=== PATIENT | female | born 1945 | race Caucasian/White ===

== ENCOUNTER 2023-06-14 21:43 | Inpatient (IN) | payer MEDICARE, OTHER ==
[~2023-06-14] VITALS: Ht 154.9 cm; Wt 79.4 kg
[2023-06-14 22:52] LABS: BASOPHILS # (AUTO) 0.1 K/uL (0.0-0.2); BASOPHILS % (AUTO) 0.8 % (0.0-2.0); EOSINOPHILS # (AUTO) 0.2 K/uL (0.0-0.7); EOSINOPHILS % (AUTO) 2.9 % (0.0-6.0); HEMATOCRIT 37 % (33-45); HEMOGLOBIN 12.3 g/dL (11.5-14.8); LYMPHOCYTES % (AUTO) 24.8 % (20.0-44.0); MEAN CORPUSCULAR HEMOGLOBIN 31 PG (26.0-33.0); MEAN CORPUSCULAR HGB CONC 33 g/dl (31.0-36.0); MEAN CORPUSCULAR VOLUME 94 fL (82-100); MONOCYTES # (AUTO) 0.7 K/uL (0.1-1.30); MONOCYTES % (AUTO) 8.6 % (2.0-12.0); NEUTROPHILS % (AUTO) 62.9 % (43.0-81.0); PLATELET COUNT (AUTO) 246 K/uL (150-450); RED BLOOD CELL COUNT(AUTO) 3.98 MIL/uL (4.0-5.2); RED CELL DISTRIBUTION WIDTH 13.2 % (11.5-15.0); WHITE BLOOD COUNT (AUTO) 7.9 K/uL (4.3-11.0)
[2023-06-14 23:17] LABS: ALANINE AMINOTRANSFERASE 19 U/L (12-78); ALBUMIN 3.3 g/dL (3.4-5.0); ALKALINE PHOSPHATASE 99 U/L (46-116); ASPARTATE AMINOTRANSFERASE 16 U/L (15-37); BILIRUBIN,DIRECT 0.1 mg/dL (0.0-0.2); BILIRUBIN,TOTAL 0.2 mg/dL (0.2-1.0); CALCIUM, SERUM 8.8 mg/dL (8.5-10.1); CARBON DIOXIDE 24 mmol/L (21-32); CHLORIDE 106 mmol/L (98-107); CREATININE 1.3 mg/dL (0.6-1.3); GLUCOSE 100 mg/dL (74-106); POTASSIUM 4.4 mmol/L (3.5-5.1); SODIUM SERUM 139 mmol/L (136-145); TOTAL PROTEIN, SERUM 7.4 g/dL (6.4-8.2); UREA NITROGEN, BLOOD 28 mg/dL (7-18)
[2023-06-14 23:19] LABS: SALICYLATE 1.1 mg/dL (2.8-20.0)
[2023-06-14 23:21] LABS: ACETAMINOPHEN <10 ug/ml (10-30); ALCOHOL, BLOOD < 3 mg/dL (0-10)
[2023-06-14 23:57] LABS: APPEARANCE,URINE CLEAR (CLEAR); BILIRUBIN,URINE NEGATIVE (NEGATIVE); BLOOD, URINE TRACE-INTA Ery/uL (NEGATIVE); COLOR,URINE YELLOW (YELLOW); KETONES,URINE NEGATIVE (NEGATIVE); LEUKOCYTE ESTERASE ,URINE NEGATIVE (NEGATIVE); NITRITE, URINE NEGATIVE (NEGATIVE); PH,URINE 5.5 (5.0-8.0); PROTEIN,URINE NEGATIVE (NEGATIVE); UGLUCOSE NEGATIVE (NEGATIVE); UROBILINOGEN,URINE 0.2 EU/dL (0.2)
[2023-06-14 23:59] LABS: ADD URINE CULTURE NO; BACTERIA,URINE None seen /HPF (None Seen); SQUAMOUS EPITHELIAL CELL,UR Few /HPF (None Seen); WBC,URINE 0-2 /HPF (0-3)
[2023-06-15 00:09] LABS: AMPHETAMINE, URINE NEGATIVE (NEGATIVE); BARBITURATE, URINE NEGATIVE (NEGATIVE); BENZODIAZEPINE, URINE NEGATIVE (NEGATIVE); CANNABINOID, URINE NEGATIVE (NEGATIVE); COCCAINE, URINE NEGATIVE (NEGATIVE); OPIATE, URINE NEGATIVE (NEGATIVE); PHENCYCLIDINE SCREEN,URINE NEGATIVE (NEGATIVE)
[2023-06-15] MEDS ORDERED: NITR100C6 PO (02:16)
[2023-06-15] MEDS ORDERED: TRAZ-182 PO (02:16)
[2023-06-15] MEDS ORDERED: QUET25TA PO (02:16)
[2023-06-15] MEDS ORDERED: FLUO10TA PO (02:16)
[2023-06-15 03:43] VITALS: BP 117/69; TEMP 97.9; O2SAT 98
[2023-06-15] MEDS ORDERED: MAG HYDROX/AL HYDROX/SIMETH 30 ML UDC PO PRN (04:00)
[2023-06-15] MEDS ORDERED: ZOLPIDEM TARTRATE 5 MG TABLET PO PRN (04:00)
[2023-06-15] MEDS ORDERED: MAGNESIUM HYDROXIDE 30 ML UDC PO PRN (04:00)
[2023-06-15] MEDS ORDERED: ACETAMINOPHEN 325 MG TABLET PO PRN (04:00)
[2023-06-15] MEDS: BLOOD SUGAR DIAGNOSTIC 1 EACH STRIP IN ONE (04:31)
[2023-06-15 08:00] VITALS: BP 125/97; TEMP 97.6; O2SAT 96
[2023-06-15] MEDS: DIVALPROEX SODIUM 125 MG CAP.SPRINK PO SCH (11:43)
[2023-06-15 16:00] VITALS: BP 113/57; TEMP 98.4; O2SAT 97
[2023-06-15 20:00] VITALS: BP 131/71; TEMP 98.1; O2SAT 99
[2023-06-15] MEDS: QUETIAPINE FUMARATE 25 MG TABLET PO SCH (21:35)
[2023-06-16 08:00] VITALS: BP 99/70; TEMP 97.8; O2SAT 96
[2023-06-16 08:08] LABS: BILIRUBIN,TOTAL 0.5 mg/dL (0.2-1.0); POTASSIUM 4.3 mmol/L (3.5-5.1)
[2023-06-16 08:20] LABS: CHOLESTEROL 201 mg/dL (<200); HDL CHOLESTEROL 60 mg/dL (40-60); LDL 118 mg/dL (0-99); TRIGLYCERIDES 72 mg/dL (30-150)
[2023-06-16] MEDS: Z GUARD REMEDY 4 OZ OINT TP SCH (09:48)
[2023-06-16 16:00] VITALS: BP 116/73; TEMP 97.9; O2SAT 98
[2023-06-17 08:00] VITALS: BP 107/63; TEMP 98; O2SAT 97
[2023-06-17 16:00] VITALS: BP 119/96; TEMP 98.6; O2SAT 98
[2023-06-17 20:00] VITALS: BP 105/65; TEMP 98.1; O2SAT 95
[2023-06-18 08:00] VITALS: BP 93/68; TEMP 98.6; O2SAT 96
[2023-06-18] MEDS: LORAZEPAM 0.5 MG TABLET PO PRN (11:40)
[2023-06-18 16:00] VITALS: BP 111/66; TEMP 97.5; O2SAT 97
[2023-06-18 20:23] VITALS: BP 98/73; TEMP 98.6; O2SAT 100
[2023-06-19 08:00] VITALS: BP 100/58; TEMP 97.9; O2SAT 97
[2023-06-19 16:00] VITALS: BP 113/79; TEMP 97.9; O2SAT 97
[2023-06-19 20:34] VITALS: BP 117/82; TEMP 97.9; O2SAT 95
[2023-06-20 08:00] VITALS: BP 100/59; TEMP 98.7; O2SAT 97
[2023-06-20 16:00] VITALS: BP 119/59; TEMP 98.7; O2SAT 98
[2023-06-20 20:41] VITALS: BP 102/52; TEMP 97.9; O2SAT 96
[2023-06-21 08:00] VITALS: BP 105/57; TEMP 98.7; O2SAT 97
[2023-06-21 16:00] VITALS: BP 102/60; TEMP 97.9; O2SAT 96
[2023-06-21 20:00] VITALS: BP 117/65; TEMP 98.4; O2SAT 96
[2023-06-22 08:00] VITALS: BP 106/54; TEMP 97.9; O2SAT 97
[2023-06-22 16:00] VITALS: BP 120/64; TEMP 98.2; O2SAT 96
[2023-06-22 20:00] VITALS: BP 108/64; TEMP 98; O2SAT 96
[2023-06-23 08:00] VITALS: BP 101/61; TEMP 98; O2SAT 98
[2023-06-23 16:00] VITALS: BP 102/81; TEMP 97.7; O2SAT 96
[2023-06-23 20:00] VITALS: BP 104/65; TEMP 98.2; O2SAT 95
[2023-06-24 08:00] VITALS: BP 98/63; TEMP 97.7; O2SAT 97
[2023-06-24 16:00] VITALS: BP 98/64; TEMP 98.1; O2SAT 96
[2023-06-24 20:27] VITALS: BP 97/67; TEMP 98.1; O2SAT 96
[2023-06-25 08:00] VITALS: BP 107/66; TEMP 98.1; O2SAT 95
[2023-06-25 16:00] VITALS: BP 104/56; TEMP 98.1; O2SAT 96
[2023-06-25 20:45] VITALS: BP 106/74; TEMP 98.1; O2SAT 96
[2023-06-26 08:00] VITALS: BP 100/65; TEMP 98.6; O2SAT 96
== END 2023-06-26 15:00 | DRG 885 ==
LOC: ER 21:48 → GPS 06-15 02:09
PROVIDERS: ADMIT Psychiatry & Neurology Psychiatry
DX: F29 Unspecified psychosis not due to a substance or known physiological condition (principal); F03.911 Unspecified dementia, unspecified severity, with agitation; G93.40 Encephalopathy, unspecified; F03.94 Unspecified dementia, unspecified severity, with anxiety; Z91.148 Patient's other noncompliance with medication regimen for other reason; Z96.643 Presence of artificial hip joint, bilateral; Z90.710 Acquired absence of both cervix and uterus; I10 Essential (primary) hypertension; Z79.899 Other long term (current) drug therapy; Z87.440 Personal history of urinary (tract) infections
CPT/HCPCS: 36415; 80048-TC; 80053-TC; 80061-TC; 80076-TC; 80164-TC; 81001; 82565-TC; 82962-TC; 85025-TC; 97112-TC; 97116-TC; 97530-TC; G0480